=== PATIENT | female | born 1985 | race Caucasian/White ===

== ENCOUNTER 2021-01-20 09:33 | Emergency (ER) | payer OTHER ==
[~2021-01-20] VITALS: Ht 162.6 cm; Wt 108.0 kg
[2021-01-20 09:37] VITALS: BP 138/74
--- NOTE | 2021-01-20 09:41 | NUR ---
PATIENT AMBULATED TO BED 12 WITH STEADY GAIT
--- NOTE | 2021-01-20 09:45 | NUR ---
35 Y/O F BIB SELF FROM HOME, PATIENT PRESENTS TO ED WITH L WRIST PAIN THAT RADIATES TO L ELBOW, PT IS ABLE TO FLEX AND EXTEND WRIST WITH PAIN, CAP REFILL <3 SECS . PT STATES SHE WAS AT WORK LIFTING SOMETHING HEAVY AND TWISTED HER WRIST WRONG. DENIES N/V/D; SKIN IS PINK/WARM/DRY; AAOX4 WITH EVEN AND STEADY GAIT; LUNGS CLEAR BL; HR EVEN AND REGULAR; PT DENIES ANY FEVER, CP, SOB, OR COUGH AT THIS TIME; PATIENT STATES PAIN OF 6/10 AT THIS TIME; VSS; PATIENT POSITIONED FOR COMFORT; HOB ELEVATED; BEDRAILS UP X2; BED DOWN. ER MD MADE AWARE OF PT STATUS. PMH: NONE NKA MED: IBUPROFEN (LAST DOSE 2100 LAST NIGHT) LITTLE RELIEF
--- NOTE | 2021-01-20 10:13 | NUR ---
Dr. Sadler is evaluating the patient at bedside.
--- NOTE | 2021-01-20 10:28 | NUR ---
XRAY AT BEDSIDE
--- NOTE | 2021-01-20 10:30 | NUR ---
communication electronic technician at bedside.
[2021-01-20] MEDS: IBUPROFEN 800 MG TAB PO ONE (10:32)
--- NOTE | 2021-01-20 11:59 | NUR ---
PTS LEFT WRIST WAS PLACED IN A WRIST SPLINT. PTS [facility] WNL.
[2021-01-20 12:06] VITALS: BP 138/74
--- NOTE | 2021-01-20 12:06 | NUR ---
Patient discharged with v/s stable. Written and verbal after care instructions given and explained. Patient verbalized understanding. Ambulatory with steady gait. All questions addressed prior to discharge. Advised to follow up with PMD.
== END 2021-01-20 12:06 | disposition home or self-care (01) ==
LOC: MED 09:33
DX: S63.502A Unspecified sprain of left wrist, initial encounter (principal); E03.9 Hypothyroidism, unspecified; X58.XXXA Exposure to other specified factors, initial encounter; Y93.89 Activity, other specified; Y92.89 Other specified places as the place of occurrence of the external cause; Y99.8 Other external cause status
CPT/HCPCS: 73110; 99283